=== PATIENT | male | born 1965 | race African-American/Black ===

== ENCOUNTER 2017-08-13 13:49 | Observation (INO) | payer BC ==
[2017-08-13 14:04] VITALS: BP 133/84; PULSE 65; TEMP 98.4; BMI 29.9
[2017-08-13] MEDS ORDERED: ASPIRIN COATED 81 MG TABLET.EC PO ONE (15:24)
--- NOTE | 2017-08-13 15:31 | PDOC ---
History of Present Illness - General Chief Complaint: Chest Pain Stated Complaint: CHEST PAIN, SOB (PCP SENT) Time Seen by Provider: 08/13/17 14:32 History Source: Patient Exam Limitations: No Limitations - History of Present Illness Initial Comments: 08/13/17 15:31 The patient is a 51M with a PMH of HTN, sickle cell trait, DVT and PE in the past, not on any blood thinners, who presents to the ED from his ekg/ecg technician's office, Dr. Virgen. The patient's complaints were initially b/l calf pain, with CP and SOB but in the ED, he has no complaints. Past History - Past Medical History Allergies/Adverse Reactions: Allergies Allergy/AdvReac Type Severity Reaction Status Date / Time No Known Allergies Allergy Verified 08/13/17 13:58 Home Medications: Ambulatory Orders Lisinopril [Prinivil] 10 mg PO DAILY 08/12/14 Anemia: No Asthma: No Cancer: No Cardiac Disorders: No CVA: No COPD: No CHF: No Dementia: No Diabetes: Yes GI Disorders: No Disorders: No HTN: Yes Hypercholesterolemia: Yes Liver Disease: No Seizures: No Thyroid Disease: No - Immunization History Immunization Up to Date: Yes (flu up to date) - Suicide/Smoking/Psychosocial Hx Smoking Status: No Smoking History: Never smoked Years of Tobacco Use: 0 Have you smoked in the past 12 months: No Number of Cigarettes Smoked Daily: 0 Cigars Per Day: 0 Hx Alcohol Use: No Drug/Substance Use Hx: No Substance Use Type: None Hx Substance Use Treatment: No Review of Systems - Review of Systems Able to Perform ROS?: Yes Comments:: 08/13/17 17:29 GENERAL/CONSTITUTIONAL: No fever or chills. No weakness. HEAD, EYES, EARS, NOSE AND THROAT: No change in vision. No ear pain or discharge. No sore throat. GASTROINTESTINAL: No nausea, vomiting, diarrhea, constipation, or abdominal pain. GENITOURINARY: No dysuria, frequency, hematuria, or change in urination. CARDIOVASCULAR: No chest pain, palpitations, or lightheadedness. RESPIRATORY: No cough, wheezing, shortness of breath, or hemoptysis. MUSCULOSKELETAL: B/l calf swelling and tightness. No neck or back pain. SKIN: No rash or lesions. NEUROLOGIC: No headache, numbness, tingling, weakness, loss of consciousness, or change in strength/sensation. ENDOCRINE: No increased thirst. No abnormal weight change. HEMATOLOGIC/LYMPHATIC: No anemia, easy bleeding, or history of blood clots. ALLERGIC/IMMUNOLOGIC: No hives or skin allergy. Is the patient limited [place]ian proficient: No *Physical Exam - Vital Signs Last Vital Signs Temp Pulse Resp BP Pulse Ox 98.4 F 65 18 133/84 100 08/13/17 13:58 08/13/17 13:58 08/13/17 13:58 08/13/17 13:58 08/13/17 13:58 - Physical Exam Comments: 08/13/17 17:31 GENERAL: Well developed, well nourished. Awake and alert. No acute distress. HEENT: Normocephalic, atraumatic. Moist mucous membranes. Oropharynx is clear. NECK: Supple. Full ROM. No JVD. CARDIOVASCULAR: Regular rate and rhythm. No murmurs, rubs, or gallops. Distal pulses are 2+ and symmetric. PULMONARY: No evidence of respiratory distress. Lungs clear to auscultation bilaterally. No wheezing, rales or rhonchi. ABDOMINAL: Soft. Non-tender. Non-distended. No rebound or guarding. GENITOURINARY: No CVA tenderness bilaterally. MUSCULOSKELETAL: Some tenderness to palpation over b/l calves. Normal range of motion at all joints. No bony deformities or tenderness. EXTREMITIES: No cyanosis. No clubbing. No edema. No calf tenderness. SKIN: Warm and dry. Normal capillary refill. No rashes. No jaundice. NEUROLOGICAL: Alert, awake, appropriate. Normal speech. Gait is normal without ataxia. PSYCHIATRIC: Cooperative. Good eye contact. Appropriate mood and affect. ED Treatment Course - LABORATORY CBC & Chemistry Diagram: 08/13/17 14:30 08/13/17 14:30 - RADIOLOGY Radiology Studies Ordered: Category Date Time Status CHEST PA & LAT [RAD] Stat Radiology 08/13/17 15:07 Ordered DUPLEX VASCUL US-2LEGS [US] Stat Ultrasound 08/13/17 15:20 Ordered Medical Decision Making - Medical Decision Making 08/13/17 15:22 The patient is a 51M with a PMH of sickle cell trait, HTN, DVT and PE in the past, not on blood thinners, who presents from Dr. Virgen's office for r/o ACS. Dr Virgen states that he saw inferior lead EKG changes with a normal in-office ECHO. He would like to r/o ACS by admitting the patient for tele obs and will stress him tomorrow in the hospital. I am also concerned for a DVT/PE especially with the patient's history. Pending labs/imaging. Dr. Moses has accepted the patient for obs tele. 08/13/17 18:50 The patient states that he does not want to stay for obs and that he was not told he would be staying. He states that he wants to go home to take care of his children but wants to make sure the labs are negative. I spoke with Dr. Virgen's associate who states that the patient should ideally stay for 2 sets of labs and negative imaging. He states that if the patient does leave AMA he should call Dr. Virgen and follow up with him tomorrow morning. I will inform the patient. 08/13/17 18:57 Patient desires to leave AMA and will f/u with Dr. Virgen tomorrow morning. *DC/Admit/Observation/Transfer Diagnosis at time of Disposition: Chest pain Qualifiers: Chest pain type: unspecified Qualified Code(s): R07.9 - Chest pain, unspecified - Discharge Dispostion Condition at time of disposition: Stable Admit: Yes - Referrals Referrals: Jayme Laboy MD [Primary Care Provider] -
[2017-08-13] MEDS ORDERED: ASPIRIN 81 MG CHEWABLE TABLETS ONE (16:03)
[2017-08-13 16:44] LABS: BASOPHIL 0.8 % (0-2.0); MCH 29.9 pg (25.7-33.7); MCHC 34.6 g/dl (32.0-35.9); MEAN CELL VOLUME 86.4 fl (80-96); MEAN PLT VOLUME 11.1 fl (7.5-11.1); PLATELET COUNT 146 K/MM3 (134-434); RDW 13.1 % (11.9-15.9); WHITE BLOOD COUNT 7.8 K/mm3 (4.0-10.0)
--- NOTE | 2017-08-13 17:01 | PDOC ---
Attending Attestation - HPI HPI: 08/13/17 17:02 The patient is a 51-year-old male with a significant past medical history of HTN , HLD, NIDDM, sickle cell trait, DVT/PE (non compliant with Pradaxa), who was sent to the emergency department by his PCP Dr. Virgen for right-sided chest pain, L leg pain, and new EKG changes. Upon interview he denies having chest pain now, and states he is feeling alright. Denies any leg swelling. Pt denies SOB, SALDANA, and dizziness. Pt denies F/C, n/v/d. Pt denies dysuria, frequency, urgency and hematuria. - Physicial Exam PE: 08/13/17 17:02 GENERAL: Awake, alert, and fully oriented, in no acute distress HEAD: No signs of trauma EYES: PERRLA, EOMI, sclera anicteric, conjunctiva clear ENT: Auricles normal inspection, nares patent, Moist mucosa NECK: Normal ROM, supple, no lymphadenopathy, JVD, or masses LUNGS: Breath sounds equal, clear to auscultation bilaterally. No wheezes, and no crackles HEART: Regular rate and rhythm, normal S1 and S2, no murmurs, rubs or gallops ABDOMEN: Soft, nontender, normoactive bowel sounds. No guarding, no rebound. No masses EXTREMITIES: Normal range of motion, no edema. No clubbing or cyanosis. No cords, erythema, or tenderness NEUROLOGICAL: Normal speech SKIN: Warm, Dry, normal turgor, no rashes or lesions noted. <Kasie Elaine - Last Filed: 08/13/17 18:56> - Resident Resident Name: Terrell Skinner - ED Attending Attestation I have performed the following: I have examined & evaluated the patient, The case was reviewed & discussed with the resident, I agree w/resident's findings & plan, Exceptions are as noted - HPI HPI: 08/13/17 16:58 - Medical Decision Making 08/13/17 16:58 51 yo m h/o sickle cell trait, prior dvt and pe, here with c/o chest pain. no current sxs. has had left leg pain. saw rodríguez today, sent for cardiac evaluation. one exam lungs heart normal. no leg swelling or edema. plan : labs ekg trop doppler lower ext cxr. will admit to dr marquez. 08/13/17 19:12 <Mary Jo Caro - Last Filed: 08/13/17 19:13>
[2017-08-13 18:12] LABS: INR 0.96 (0.82-1.09); PROTHROMBIN TIME (PATIENT) 10.9 SEC (9.98-11.88)
[2017-08-13 18:14] LABS: ACTIVATED PTT 23.2 SECONDS (26.9-34.4)
[2017-08-13 18:29] LABS: CPK 123 IU/L (39-308)
[2017-08-13 18:30] LABS: TROPONIN I < 0.02 ng/ml (0.00-0.05)
[2017-08-13 19:25] LABS: ALBUMIN 3.7 g/dl (3.4-5.0); ANION GAP 8 (8-16); BILIRUBIN,TOTAL 0.7 mg/dL (0.2-1.0); CALCIUM 8.7 mg/dL (8.5-10.1); CO2 26 mmol/L (21-32); CREATININE 1.5 mg/dL (0.7-1.3); GLUCOSE,RANDOM 128 mg/dL (74-106); SGOT/AST 42 U/L (15-37); SGPT/ALT 74 U/L (12-78)
[2017-08-13 19:26] LABS: ALK PHOS 88 U/L (45-117); TOT PROT 7.3 g/dl (6.4-8.2)
[2017-08-13 21:45] LABS: PLATELET COMMENT2 NO CLOTTING DETECTED; PLATELET ESTIMATE SLT DECREASED (NORMAL)
[2017-08-13 21:46] LABS: PLATELET COMMENT3 FEW GIANT PLTS
--- NOTE | 2017-08-14 12:34 | EKG ---
Test Reason : Blood Pressure : / mmHG Vent. Rate : 060 BPM Atrial Rate : 060 BPM P-R Int : 158 ms QRS Dur : 088 ms QT Int : 384 ms P-R-T Axes : 041 022 004 degrees QTc Int : 384 ms NORMAL SINUS RHYTHM NORMAL ECG WHEN COMPARED WITH ECG OF 19-AUG-2016 09:59, NO SIGNIFICANT CHANGE WAS FOUND Confirmed by TRAM ZARCO MD ([id number]) on 08/14/2017 12:33:56 PM Referred By: Confirmed By:TRAM ZARCO MD
== END 2017-08-13 19:35 | disposition left against medical advice (07) ==
LOC: JER 13:49 → JERBED 17:42
PROVIDERS: ADMIT Internal Medicine; ATTEND Nurse Practitioner Acute Care
DX: R07.9 Chest pain, unspecified (principal); I10 Essential (primary) hypertension; E11.9 Type 2 diabetes mellitus without complications; E78.5 Hyperlipidemia, unspecified; D57.3 Sickle-cell trait; Z86.718 Personal history of other venous thrombosis and embolism; Z86.711 Personal history of pulmonary embolism
CPT/HCPCS: 36415; 71020-TC; 80053; 82550; 84484; 85025; 85610; 85730; 93005; 93010; 93970-TC; 99282-25; G0378

== ENCOUNTER 2022-10-11 16:41 | Emergency (ER) | payer BC ==
[2022-10-11 17:00] VITALS: BP 120/71; PULSE 64; RESP 19; TEMP 97.8; BMI 27.9
[2022-10-11 20:20] LABS: BASO % 0.4 % (0-2.0); EOS % 0.8 % (0-4.5); HEMATOCRIT 47.5 % (35.4-49); HEMOGLOBIN 15.4 GM/dL (11.7-16.9); LYMPH % 43.4 % (8-40); MCH 28.7 pg (25.7-33.7); MCHC 32.4 g/dl (32.0-35.9); MEAN CELL VOLUME 88.5 fl (80-96); MEAN PLT VOLUME 9.9 fl (7.5-11.1); MONO % 6.1 % (3.8-10.2); NEUT % 49.3 % (42.8-82.8); PLATELET COUNT 179 10^3/uL (134-434); RBC 5.36 M/mm3 (4.00-5.60); RDW 13.5 % (11.9-15.9); WHITE BLOOD COUNT 6.9 K/mm3 (4.0-10.0)
[2022-10-11 20:37] LABS: CALCIUM 9.1 mg/dL (8.5-10.1)
[2022-10-11 20:38] LABS: ALBUMIN 3.7 g/dl (3.4-5.0); BLOOD UREA NITROGEN 14.6 mg/dL (7-18)
[2022-10-11 20:42] LABS: BILIRUBIN,TOTAL 0.6 mg/dL (0.2-1); CREATININE 1.5 mg/dL (0.55-1.3); TOT PROT 7.6 g/dl (6.4-8.2)
[2022-10-11 20:44] LABS: INR 0.94 (0.83-1.09); PROTHROMBIN TIME (PATIENT) 10.8 SEC (9.7-13.0)
[2022-10-11 20:46] LABS: ACTIVATED PTT 27.8 SECONDS (25.2-36.5)
== END 2022-10-11 21:32 | disposition home or self-care (01) ==
LOC: JER 16:41
DX: R07.9 Chest pain, unspecified (principal)
CPT/HCPCS: 36415; 71046-TC-FY; 80053; 84484; 85025; 85379; 85610; 85730; 93005; 93010; 99285-25